=== PATIENT | female | born 1990 | race Caucasian/White ===

== ENCOUNTER → 2016-04-30 01:34 | Observation (INO) ==
--- NOTE | 2016-05-03 11:42 | OB/GYN Progress Note ---
Date of Encounter: 05/03/16 Time of Encounter: 11:41 (Triage by RN) - Assessment and Plan (1) False labor Status: Acute
== END | disposition home or self-care (01) ==
LOC: 1NENULAB

== ENCOUNTER 2016-05-04 08:00 | Inpatient (IN) ==
[2016-05-04] MEDS ORDERED: Ondansetron 4 MG/2 ML VIAL IVP PRN (08:43)
[2016-05-04] MEDS ORDERED: miSOPROStol 25 MCG TABLET PO PRN (08:43)
[2016-05-04] MEDS ORDERED: Famotidine 20 MG/2 ML VIAL IVP PRN (08:43)
[2016-05-04] MEDS ORDERED: Naloxone 0.4 MG/ML INJ IVP PRN (08:43)
[2016-05-04] MEDS ORDERED: *HR* Buprenorphine HCl 8 MG TAB.SUBL SL ONE (09:00)
[2016-05-04 09:14] LABS: Basophils % 0.3 %; Eosinophils # 0.1 K/mcL (0.0-0.6); Eosinophils % 1.6 %; Hematocrit 34.9 % (35.3-44.9); Hemoglobin 11.7 g/dL (11.5-15.4); Immature Granulocytes % 0.8 % (0-4); Lymphocytes # 1.1 K/mcL (0.6-4.6); Lymphocytes % 12.2 %; Mean Corpuscular HGB Conc 33.5 g/dL (31.6-35.5); Mean Corpuscular Hemoglobin 27.8 pg (28.0-33.3); Mean Corpuscular Volume 82.9 fL (83.0-100.0); Monocytes # 0.8 K/mcL (0.0-1.3); Monocytes % 9.5 %; Neutrophils # 6.6 K/mcL (1.6-8.9); Platelet Count 217 K/mcL (140-400); Red Blood Count 4.21 M/mcL (3.82-4.97); Red Cell Distribution Width 12.8 % (11.5-14.5); Segmented Neutrophils % 75.6 %
[2016-05-04] MEDS ORDERED: Vancomycin 1,000 MG in D5% in Water 250 ML IVPB SCH (10:01)
--- NOTE | 2016-05-04 10:10 | OB/GYN History & Physical ---
Date of Encounter: 05/04/16 Time of Encounter: 10:07 Assessment and Plan (1) IUGR (intrauterine growth restriction) Current visit: Yes Status: Acute Induction of labor with cytotec (2) 39 weeks gestation of Current visit: Yes Status: Acute (3) complicated by subutex maintenance, antepartum Current visit: Yes Status: Acute (4) History of group B Streptococcus (GBS) infection Current visit: Yes Status: Acute treat with vancomycin due to PCN allergy. History of Present Illness Chief complaint: Inducion of labor HPI: Ms. Marinelli is a 25 year old female [id number] here for IOL for IUGR, complicated by IUGR, maternal drug and subutex use. Pt reports good movement, denies leaking of fluid or vaginal bleeding and occasional contractions. Labs: AB+, antibody negative, serologies negative, GBS negative but patient has history of GBS infections Past Med Surg Social Fam HX - Past Medical History Medical history: no medical history Psychiatric history: no psych history - Past Surgical History Surgical History: other (right wrist cyst removal ) - Social History Smoking Status: Former smoker Smokeless Tobacco Status: No Alcohol use: none Drug use: prescription drug abuse - Family History Father Living Status: Still Living Hx Family Cancer: Yes Obstetrical History - Pregnancies : 3 Para: 2 Term: 2 : 0 Ab's: 0 Livin Medications and Allergies Buprenorphine HCl [Subutex] 1 tab PO BID 04/30/16 [History] Daily Combo Pack 1 tab PO DAILY 04/30/16 [History] Zofran 1 tab PO PRN PRN 04/30/16 [History] Allergies Penicillins Allergy (Verified 04/30/16 00:15) Anaphylaxis Review of System OB All systems PM: reviewed and no additional remarkable complaints except as stated - Nose, mouth, and throat Nose, mouth and throat: nasal congestion Exam - Vital Signs Vital signs: Initial Vital Signs Temp Pulse Resp BP 98.0 F 82 16 141/82 05/04/16 08:21 05/04/16 08:21 05/04/16 08:21 05/04/16 08:21 - Constitutional Constitutional: well developed, well nourished, no acute distress - HEENT HEENT: Other (nasal congestion ) - Neck Neck exam: full ROM - Lungs Respiratory exam: CTAB - Cardiovascular Cardiovascular exam: RRR, +S1, +S2 - Abdomen Abdomen: Present: bowel sounds normal, gravid, non tender - Extremities Extremities exam: normal inspection - Vulva Vulva: bilateral: normal - Uterus Uterus exam: Present: normal size, normal contour - Comments Comments: FHT 150/moderate/no accels/no decels Cat 1 tracing Occasional contractions Results Result Diagrams: 05/04/16 08:40 Abnormal lab results Hct 34.9 % (35.3-44.9) L 05/04/16 08:40 MCV 82.9 fL (83.0-100.0) L 05/04/16 08:40 MCH 27.8 pg (28.0-33.3) L 05/04/16 08:40 All other labs normal. - VTE Reasons for not Prescribing Prophylaxis: Treatment not Indicated - Low risk for VTE
[2016-05-04] MEDS: Ringers Solution, Lactated 1,000 ML IVC SCH ×2 (11:15→15:42)
--- NOTE | 2016-05-04 12:48 | OB Labor Progress Note ---
Date of Encounter: 05/04/16 Time of Encounter: 12:45 Labor Progress Note - Subjective Subjective: Patient sitting in bed. Denies any pain at this time. Discussed POC with patient. Patient denies any questions or concerns. - Cervix Cervix: 4/70/-2 - Heart Tones Heart Tones: 135 bpm moderate variability +15x15 accels no decels noted. Cat 1 tracing. - [place]: irregular contractions - Interventions Interventions: SVE, AROM moderate amount meconium stained fluid noted. Nursery and Dr. Verma notified. - Plan Plan: Continue labor management. Will start pitocin for augmentation.
[2016-05-04] MEDS ORDERED: Oxytocin 20 units/ LR 1000 mL 20 UNIT/1,000 ML BAG IVC ONE (13:10)
[2016-05-04] MEDS ORDERED: Oxytocin 20 units/ LR 1000 mL 20 UNIT/1,000 ML BAG IVC SCH (13:15)
[2016-05-04] MEDS ORDERED: EPHEDrine 50 MG/ML VIAL IVP PRN (13:56)
[2016-05-04] MEDS ORDERED: *HR* FentaNYL (PF) 100 MCG/2 ML VIAL EP ONE (13:56)
[2016-05-04] MEDS ORDERED: Ringers Solution, Lactated 500 ML IVC ONE (13:56)
[2016-05-04] MEDS ORDERED: *HR* Ropivacaine/PF 0.2% 10 ML AMPUL EP ONE (13:56)
--- NOTE | 2016-05-04 13:56 | Anesthesia Evaluation PreOp ---
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 Other Medical History: Denies Any Significant HX Anesthesia History: No Prior Anesthetic Complications, Past Anesthesia : Yes Alcohol Use: none Drug use: prescription drug abuse (On Subutex) Medications and Allergies Buprenorphine HCl [Subutex] 1 tab PO BID 04/30/16 [History] Daily Combo Pack 1 tab PO DAILY 04/30/16 [History] Zofran 1 tab PO PRN PRN 04/30/16 [History] Allergies Penicillins Allergy (Verified 04/30/16 00:15) Anaphylaxis - Meds/Allergy Pre-op Review Medications Reviewed: Yes Allergies Reviewed: Yes Beta Blockers on Current Med List: No Anesthesia Results - Labs 05/04/16 08:40 Anesthesia Exam Last Vital Signs Temp 98.0 F 05/04/16 08:21 Pulse 82 05/04/16 08:21 Resp 16 05/04/16 08:21 BP 141/82 05/04/16 08:21 Height: 1.8m Weight: 89.9kg NPO (# of Hours): >4 Pain Scale: 6 Pain Scale Used: Numeric (1 - 10) - HEENT Pupil (Motor): Pupils equal Mallampati: II Teeth: Normal Oral Opening: Greater than 3 - MIXER OPERATOR LOC: Oriented MIXER OPERATOR Motor: Normal RUE, Normal LUE, Normal RLE, Normal LLE, Normal Face MIXER OPERATOR Sensory: Normal: RUE, LUE, RLE, LLE, Face - Cardiac Rhythm: Regular Murmur: None JVD: No Carotid Bruit: No - Pulmonary Breath Sounds: bilateral Clear Respiratory Effort: Symmetrical Anesthesia Assess/Plan ASA Score: 2 Modified [place] Scale for Level of Consciousness: Cooperative, oriented, and tranquil Anesthetic Plan: Regional Autologous Blood: Yes Monitoring Plan: Standard Monitors Recovery Plan: Other
[2016-05-04] MEDS ORDERED: *HR* Ropivacaine/PF 0.2% 10 ML AMPUL ONE (13:59)
[2016-05-04] MEDS ORDERED: Epidural Premix (fent/bupiv) 110 ML EP ONE (13:59)
[2016-05-04] MEDS ORDERED: *HR* FentaNYL (PF) 100 MCG/2 ML VIAL ONE (13:59)
[2016-05-04] MEDS ORDERED: Epidural Premix (fent/bupiv) 110 ML EP SCH (14:00)
--- NOTE | 2016-05-04 15:04 | Anesthesia Procedures ---
Date of Encounter: 05/04/16 Time of Encounter: 14:39 Procedures: Anesthesia - Epidural/Spinal Patient ID/Chart reviewed: Yes Patient examined: Yes OB Eval: Gestational age: 39 OB Eval: : 3 OB Eval: Hx Para: 2 OB Eval: Dilated at (cm): 5 OB Eval: Contractions: Non-stressed pattern Consent Obtained: Yes Supplemental Oxygen: None/Room Air Site Prep: Aseptic Technique, Sterile prep and drape, 0.5% Chlorhexidine/Alcohol Patient position: upright Local Anesthetic: Lidocaine 1% Amount of Local Anesthetic used: 2.5 Touhy Needle Gauge: 18 Touhy Needle Depth (cm): 8 Catheter Depth at Skin (cm): 14 Test Dose (1.5% Lido + Epi): Volume given (mls): 5 Test Dose Result: Negative Loading Dose: Fentanyl (mcg): 100 Loading Dose: Other: Ropivacaine 0.2% 11mL Loading Dose Administered: Thru Catheter Infusion Med: 0.125% Bupivacaine w/ 2 mcg/ml Fentanyl Infusion Rate (mls/hr): 16 (Bolus 4mL q15min; max 3/hr) Catheter Secured in Place: Tegaderm, Tape Interspace Used: L2-L3 Loss of Resistance (YARED): Yes Blood: No CSF: No Paresthesia: No Procedure: Patient tolerated well. Vitals + FHT's: VSS and FHR stable throughout procedure. See nursing documentation.
--- NOTE | 2016-05-04 15:25 | OB Labor Progress Note ---
Date of Encounter: 05/04/16 Time of Encounter: 15:23 Labor Progress Note - Subjective Subjective: Pt resting comfortable in bed after epidural placement. No complaints - Cervix Cervix: 5/80/-2 - Heart Tones Heart Tones: 140/moderate/-accels/early decels - [place]: 2-3 firm soft in between contractions - Plan Plan: Continue pitocin per policy Clear liquids Continue GBS treatment Anticipate
--- NOTE | 2016-05-04 18:28 | OB/GYN Procedure Note ---
Delivery - Delivery Date: 05/04/16 Provider: Sven Verma ([facility]) Intrapartum events: none Delivery induction: AROM, oxytocin, misoprostol Delivery monitor: external FHT, external uterine, internal uterine Anesthesia: epidural Estimated Blood Loss: 200 - Infant (s) Infant A Presentation: vertex Position: LEMUEL Route of delivery: Gender: Female Viability: Viable Shoulder Dystocia: not encountered Placenta: spontaneous Cord: nuchal cord - Repair Episiotomy: none Laceration Description: None - Complications Delivery complications: meconium Delivery comments: Pt felt pressure began maternal bearing down efforts to of liveborn female. Vertex was LEMUEL,nuchal identified and manually reduced, shoulders followed easily after maternal repositioning Fluid was thick meconium placed on maternal abdomen for stimulation followed by cry. Placenta delivered spontaneously (slime) intact on inspection. Perineum intact, fundus firm pitocin per policy, EBL 200 Dr. Verma present for entire procedure. - Disposition Mom disposition: stable in LDR disposition: stable in LDR
[2016-05-04] MEDS ORDERED: BUPRENORPHINE HCL PO SCH (21:00)
[2016-05-05] MEDS ORDERED: Lanolin 7 G OINT...G. TP PRN ×2 (07:21→14:02)
[2016-05-05] MEDS ORDERED: Benzocaine/Menthol 56 GM AEROSOL SPRAY TP PRN (07:21)
[2016-05-05] MEDS ORDERED: Ibuprofen 600 MG TABLET PO PRN ×2 (07:21→14:02)
[2016-05-05] MEDS ORDERED: Oxytocin 20 units/ LR 1000 mL 20 UNIT/1,000 ML BAG IVC ONE (07:21)
[2016-05-05] MEDS ORDERED: Acetaminophen 325 MG TABLET PO PRN ×2 (07:21→14:02)
[2016-05-05] MEDS ORDERED: Oxytocin 20 units/ LR 1000 mL 20 UNIT/1,000 ML BAG IV SCH (07:21)
[2016-05-05] MEDS: BUPRENORPHINE HCL 8 MG SL SCH ×2 (08:59→21:22)
[2016-05-05] MEDS ORDERED: SUBUTEX 8 MG PO SCH (09:00)
[2016-05-05] MEDS ORDERED: Prenatal Vit/FA 1 EACH TABLET PO SCH (09:00)
--- NOTE | 2016-05-05 09:27 | OB/GYN Progress Note ---
Date of Encounter: 05/05/16 Time of Encounter: 09:25 - Assessment and Plan (1) Status post vaginal delivery Current Visit: Yes Status: Acute Patient is recovering well. She denies any complaints. (2) Sterilization Current Visit: Yes Status: Acute Risks, benefits, and alternatives discussed with the patient. She declines long acting reversible contraception and desires sterilization. Informed consent obtained. Subjective - Subjective Principal diagnosis: s/p vaginal delivery Patient reports: appetite normal, voiding normally, pain well controlled, ambulating normally : doing well, bottle feeding Objective - Latest Vital Signs Latest vital signs: Vital Signs Temp Pulse Resp BP Pulse Ox 05/05/16 08:08 98.1 F 77 18 124/89 100 05/05/16 02:30 98.4 F 85 16 129/79 100 05/04/16 21:45 97.8 F 83 18 123/81 98 05/04/16 20:30 98.2 F 102 18 132/80 98 05/04/16 19:35 98.3 F 89 18 125/85 97 Intake and Output 05/04/16 05/05/16 05/05/16 23:59 07:59 15:59 Intake Total 700 / 700 Output Total 300 / 300 500 / 500 400 / 400 Balance 400 / 400 -500 / -500 -400 / -400 Intake: Oral 700 / 700 Output: Urine 300 / 300 500 / 500 400 / 400 Other: Weight 85.8 kg 82.735 kg Patient Weight 05/05/16 23:59 Weight 82.735 kg - Exam Lungs: bilateral: normal Chest: Normal S1, Normal S2 Extremities: Present: normal. Absent: tenderness Abdomen: Present: normal appearance, soft, gravid Uterus: Present: firm Uterus Position: 1 Finger Below Umbilicus
[2016-05-05] MEDS ORDERED: Ringers Solution, Lactated 1,000 ML ONE ×2 (09:50→10:29)
--- NOTE | 2016-05-05 09:50 | Anesthesia Evaluation PreOp ---
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 Any Significant HX Other Medical History: Other (on Subutex) Anesthesia History: No Prior Anesthetic Complications : No Alcohol Use: none Drug use: prescription drug abuse (On Subutex) Medications and Allergies Buprenorphine HCl [Subutex] 1 tab PO BID 04/30/16 [History] Daily Combo Pack 1 tab PO DAILY 04/30/16 [History] Zofran 1 tab PO PRN PRN 04/30/16 [History] Allergies Penicillins Allergy (Verified 04/30/16 00:15) Anaphylaxis - Meds/Allergy Pre-op Review Medications Reviewed: Yes Allergies Reviewed: Yes Beta Blockers on Current Med List: No Anesthesia Results - Labs 05/04/16 08:40 Anesthesia Exam Height: 1.8 Weight: 82kg NPO (# of Hours): 8 Pain Scale: 0 Pain Scale Used: Numeric (1 - 10) - HEENT Pupil (Motor): Pupils equal Mallampati: I Teeth: Normal Oral Opening: Greater than 3 - COAL PULVERIZER OPERATOR LOC: Oriented COAL PULVERIZER OPERATOR Motor: Normal RUE, Normal LUE, Normal RLE, Normal LLE, Normal Face COAL PULVERIZER OPERATOR Sensory: Normal: RUE, LUE, RLE, LLE, Face - Cardiac Rhythm: Regular Murmur: None JVD: No Carotid Bruit: No - Pulmonary Breath Sounds: bilateral Clear Respiratory Effort: Symmetrical Anesthesia Assess/Plan ASA Score: 2 Modified [place] Scale for Level of Consciousness: Cooperative, oriented, and tranquil Anesthetic Plan: General Autologous Blood: Yes Monitoring Plan: Standard Monitors Recovery Plan: PACU
[2016-05-05] MEDS ORDERED: *HR* Midazolam HCl 2 MG/2 ML VIAL ONE (09:51)
[2016-05-05] MEDS ORDERED: *HR* Propofol 200 MG/20 ML VIAL IVP ONE (09:51)
[2016-05-05] MEDS ORDERED: *HR* FentaNYL (PF) 100 MCG/2 ML VIAL ONE ×2 (09:51→10:16)
[2016-05-05] MEDS ORDERED: *HR* Succinylcholine 200 MG/10 ML VIAL IVP ONE (09:54)
[2016-05-05] MEDS ORDERED: Lidocaine -MPF 2% 5 ML VIAL INFILT ONE (09:54)
[2016-05-05] MEDS ORDERED: *HR* Rocuronium Bromide 50 MG/5 ML VIAL ONE ×2 (09:55→10:16)
[2016-05-05] MEDS ORDERED: Dexamethasone 4 MG/ML VIAL ONE (10:13)
[2016-05-05] MEDS ORDERED: Ondansetron 4 MG/2 ML VIAL ONE (10:13)
[2016-05-05] MEDS ORDERED: Neostigmine Methylsulfate 3 MG/3 ML SYRINGE ONE (10:23)
[2016-05-05] MEDS ORDERED: *HR* HYDROmorphone (PF) 1 MG/ML SYRINGE IVP PRN (10:35)
[2016-05-05] MEDS ORDERED: Ondansetron 4 MG/2 ML VIAL IVP ONE (10:35)
[2016-05-05] MEDS ORDERED: Albuterol 2.5 MG/3 ML NEBULIZER IH ONE (10:35)
[2016-05-05] MEDS ORDERED: *HR* Meperidine 25 MG/ML SYRINGE IVP PRN (10:35)
[2016-05-05] MEDS ORDERED: Naloxone 0.4 MG/ML INJ IVP PRN (10:35)
[2016-05-05] MEDS ORDERED: Ringers Solution, Lactated 1,000 ML IVC SCH (10:45)
--- NOTE | 2016-05-05 11:08 | OB/GYN Procedure Note ---
OB-BOATSWAINS MATE: Procedure - Diagnosis Date of procedure: 05/05/16 Pre-op diagnosis: undesired fertility Post-op diagnosis: same - Procedure Procedure: [place] tubal ligation Surgeon: Melony Oliveira Distributor Sales Manager: Mildred Treviño Anesthesia provider: Hao Brennan Anesthesia Type: General Estimated blood loss (cc): 5 Fluids: crystalloid Procedure Complications: none Specimens collected: bilateral tubal segments Disposition: floor Findings: normal appearing fallopian tubes prior to ligation Narrative: Patient was taken operative suite and placed under general she without difficulty. Timeout was then performed. Antibiotics are not indicated. SCDs are on and active. The infraumbilical area is anesthetized using 1% lidocaine with epinephrine. An infraumbilical incision is then made and carried through to the underlying layer fascia the fascia was then tented up and entered sharply with the Metzenbaum scissors. The peritoneum is then entered sharply. Patient is then placed in Trendelenburg position and the left tube is identified and followed to the fimbriated end. A knuckle of tube in the midportion is then double suture ligated using 0 plain gut and transected. Hemostasis is assured and the tube was returned to the abdomen. The right tube was then grasped and followed to the fimbriated end. A knuckle of tube in the midportion is then double suture ligated using 0 plain gut and transected. Hemostasis is assured and the tube was returned to the abdomen. The fascia was then closed using 0 Vicryl in a running fashion. The skin is reapproximated using 4-0 Vicryl. Sterile dressing is then applied. Patient tolerated the procedure well. Sponge, needle, and instrument counts are correct at the end of the procedure. She is extubated and taken to recovery in stable condition.
[2016-05-05] MEDS ORDERED: *HR* HYDROmorphone 2 MG/ML SYRINGE IVP ONE (12:48)
--- NOTE | 2016-05-05 12:51 | Anesthesia Evaluation Post Op ---
Date of Encounter: 05/05/16 Time of Encounter: 12:51 - Vital Signs Vital Signs: Vital Signs/O2 Sat/Glucose, Most Current Temp Pulse Resp BP Pulse Ox 05/05/16 11:45 16 05/05/16 11:28 90 16 130/79 97 05/05/16 11:02 73 16 114/62 97 05/05/16 10:48 97.8 F 112 16 122/72 95 05/05/16 08:59 16 - Lungs Lungs: Clear Ascult./Percussion - Airway Airway: Non-obstructed - Cardiovascular Regular Rate, Baseline Rhythm - Mental Status Mental Status: Alert & Oriented, Answers Appropriately - Pain Pain Scale: 5 Pain Scale used: Numeric (1 - 10) - Nausea Vomiting Nausea Vomiting: Not Present - Hydration Hydration: Tolerates oral liquids, Has not voided - Discharge PostOp Status: Transfer Patient to floor
--- NOTE | 2016-05-05 19:35 | Discharge Summary ---
Date of Encounter: 05/05/16 Time of Encounter: 19:33 - Discharge Diagnosis (1) Status post vaginal delivery Priority: Primary Status: Acute (2) Sterilization Priority: Secondary Status: Acute - Discharge Medications Home Medications: Buprenorphine HCl [Subutex] 1 tab PO BID 04/30/16 [History] Daily Combo Pack 1 tab PO DAILY 04/30/16 [History] Zofran 1 tab PO PRN PRN 04/30/16 [History] Allergies/Adverse Reactions: Allergies Penicillins Allergy (Verified 04/30/16 00:15) Anaphylaxis Data Procedures and tests throughout hospitalization: Laboratory Tests 05/04/16 08:40 WBC 8.8 RBC 4.21 Hgb 11.7 Hct 34.9 L MCV 82.9 L MCH 27.8 L MCHC 33.5 RDW 12.8 Plt Count 217 MPV 10.0 Immature Gran % 0.8 Seg Neutrophils % 75.6 Lymphocytes % 12.2 Monocytes % 9.5 Eosinophils % 1.6 Basophils % 0.3 Neutrophils # 6.6 Lymphocytes # 1.1 Monocytes # 0.8 Eosinophils # 0.1 Basophils # 0.0 Date of admission: 05/04/16 08:16 Primary care physician: PCP NO Consults: 05/05/16 07:21 Consult to Child Care Centre Director [CONS] Routine Comment: Vaginal delivery, consult needed Consult to Commissary Helper [CONS] Routine Reason for SW Consult: subutex Discharging clinician: Melony Oliveira Anticipated date of discharge: 05/05/16 - Patient Status Disposition: Home, Self-Care Condition: Good Functional capacity at discharge: independent ambulation Overall status at discharge: patient is progressing back to baseline - Discharge Instructions Follow Up With: NO,PCP [Primary Care Provider] - - Diet and Activity Activity: increase activity as tolerated Diet: advance to your usual diet Hospital Course Reason for admission: induction of labor, IUP at term Delivery: Episiotomy: none Other procedures: tubal ligation complications: none Discharge diagnosis: IUP at term delivered [place] baby: female Time Attestation: Total time spent providing and/or coordinating discharge services: Time Spent: Less than 30 minutes Exam - Constitutional Vitals: Temp Pulse Resp BP Pulse Ox 98.3 F 94 16 133/78 97 05/05/16 15:47 05/05/16 15:47 05/05/16 15:47 05/05/16 15:47 05/05/16 15:47
[2016-05-05] MEDS ORDERED: Patient Taking Own Medication 1 EACH SL SCH (21:00)
[2016-05-05 21:27] VITALS: BP 139/80
[2016-05-06] MEDS ORDERED: Prenatal Vit/FA 1 EACH TABLET PO SCH (09:00)
== END 2016-05-05 23:55 | disposition home or self-care (01) | DRG 541 ==
LOC: 1NENULAB 08:16 → 1NENUOBS 19:53